=== PATIENT | female | born 1985 | race Caucasian/White ===

== ENCOUNTER 2017-08-13 13:46 | Emergency (ER) | payer OTHER ==
[~2017-08-13] VITALS: Ht 152.4 cm; Wt 94.0 kg
[2017-08-13 14:29] LABS: HEMATOCRIT 31.5 % (36.0-46.0); HEMOGLOBIN 10.9 G/DL (11.9-15.5); MCH 31.3 PG (29.0-34.0); MCHC 34.6 G/DL (30.0-36.0); MCV 90.5 FL (83-99); PLATELET COUNT 283 K/uL (156-360); RBC DIS.WIDTH-CV 14.5 % (11.8-14.6); RBC DIS.WIDTH-SD 47.9 % (39-53); RED BLOOD COUNT 3.48 M/uL (3.80-5.20); WHITE BLOOD COUNT 17.2 K/uL (4.1-10.2)
[2017-08-13 14:40] LABS: ALBUMIN 3.1 g/dL (3.2-4.8); CHLORIDE 106 mEq/L (99-109); POTASSIUM 3.7 mEq/L (3.7-5.4); SODIUM 138 mEq/L (136-147)
[2017-08-13 14:42] LABS: GLUCOSE 117 mg/dL (70-99); TOTAL PROTEIN 6.2 g/dL (6.4-8.3)
[2017-08-13 14:44] LABS: TOTAL BILIRUBIN 0.2 mg/dL (0.0-1.0)
[2017-08-13 14:46] LABS: ALKALINE PHOSPHATASE 97 IU/L (3-129); CREATININE 0.6 mg/dL (0.6-1.3); GFR ESTIMATE (CALCULATED) > 59 mL/min/
[2017-08-13 14:47] LABS: UREA NITROGEN (BUN) 9 mg/dL (9-23)
[2017-08-13 14:48] LABS: AST (GOT) 10 IU/L (2-34)
[2017-08-13 14:49] LABS: ALT (GPT) 10 IU/L (3-49)
[2017-08-13 15:29] LABS: APPEARANCE SL.HAZY ((CLEAR)); BILIRUBIN NEGATIVE; BLOOD NEGATIVE; COLOR YELLOW ((YELLOW)); GLUCOSE (STRIP) NEGATIVE; KETONES NEGATIVE; LEUKOCYTES NEGATIVE; NITRITE NEGATIVE; PROTEIN (STRIP) 30; SPECIFIC GRAVITY 1.016 (1.000-1.030); UROBILINOGEN 0.2 MG/DL (0.2-1.0)
[2017-08-13 15:57] LABS: BACTERIA RARE /HPF; EPITHELIAL CELLS 1+ /HPF; MUCUS TRACE /LPF; RED BLOOD CELLS 0-5 /HPF (0-5); UCUL ADDED? NO; WHITE BLOOD CELLS 0-5 /HPF (0-5)
[2017-08-13] MEDS ORDERED: KEFLEX500 MG PO (17:02)
[2017-08-13 17:26] VITALS: BP 96/56
== END 2017-08-13 17:27 | disposition home or self-care (01) ==
LOC: EME 13:46
PROVIDERS: Emergency Medicine Emergency Medical Services
DX: O23.12 Infections of bladder in pregnancy, second trimester (principal); N30.90 Cystitis, unspecified without hematuria; O26.892 Other specified pregnancy related conditions, second trimester; R55 Syncope and collapse; O99.332 Smoking (tobacco) complicating pregnancy, second trimester; F17.200 Nicotine dependence, unspecified, uncomplicated; O99.282 Endocrine, nutritional and metabolic diseases complicating pregnancy, second trimester; E86.0 Dehydration; Z3A.25 25 weeks gestation of pregnancy
CPT/HCPCS: 76805; 80053; 81003; 85027; 86850; 86900; 86901; 99281; 99285; J2405; J7040